=== PATIENT | female | born 1935 | race Asian ===

== ENCOUNTER 2018-04-09 09:14 | Emergency (ER) | payer OTHER ==
[~2018-04-09] VITALS: Ht 149.9 cm; Wt 44.5 kg
[~2018-04-09 09:14] MED LIST: ASPI-556 PO; [UNRECOGNIZED DRUG - REMARK] PO
[2018-04-09] MEDS ORDERED: METO25XL PO (09:36)
[2018-04-09] MEDS ORDERED: APIX2.5T PO (09:36)
[2018-04-09] MEDS ORDERED: VITAD1000 PO (09:36)
[2018-04-09] MEDS ORDERED: ATOR10TA84 PO (09:36)
[2018-04-09] MEDS ORDERED: LISI-662 PO (09:36)
[2018-04-09] MEDS ORDERED: OS500 PO (09:36)
[2018-04-09] MEDS ORDERED: RALO60 PO (09:36)
[2018-04-09] MEDS ORDERED: PredniSONE 20 MG TABLET PO ONE (10:15)
[2018-04-09] MEDS ORDERED: DiphenhydrAMINE HCL 25 MG CAPSULE PO ONE (10:15)
[2018-04-09 11:21] VITALS: BP 130/69
== END 2018-04-09 11:30 | disposition home or self-care (01) ==
LOC: EMS 09:16
DX: L50.0 Allergic urticaria (principal); R22.0 Localized swelling, mass and lump, head; I10 Essential (primary) hypertension; Z95.0 Presence of cardiac pacemaker; Z79.82 Long term (current) use of aspirin; Z79.899 Other long term (current) drug therapy
CPT/HCPCS: 99283; J7512